=== PATIENT | female | born 1975 | race African-American/Black ===

== ENCOUNTER 2017-01-17 01:14 | Emergency (ER) | payer OTHER ==
[2017-01-17 02:29] VITALS: BP 103/73
[2017-01-17 02:53] LABS: Basophils % (Auto) 0.1 % (0.0-1.8); Eosinophils % (Auto) 0.1 % (0.0-4.3); Hemoglobin 10.8 gm/dl (10.1-14.3); Mean Corpuscular HGB Conc 34 % (30-34); Mean Corpuscular Hemoglobin 30 pg (28-32); Mean Corpuscular Volume 88 fl (79-97); Platelet Count 234 K/mm3 (140-440); Red Blood Count 3.62 M/mm3 (3.65-5.03); Red Cell Distribution Width 13.4 % (13.2-15.2)
[2017-01-17 03:22] LABS: Bacteria,Urine 1+ /HPF (Negative); Bilirubin,Urine NEG (Negative); Blood,Urine LG (Negative); Ketones,Urine NEG (Negative); Leukocyte Esterase,Urine SM (Negative); Mucus,Urine 2+ /HPF; Nitrite,Urine NEG (Negative); Urobilinogen,Urine < 2.0 mg/dL (<2.0)
[2017-01-17 03:23] LABS: RBC,Urine > 182.0 /HPF (0.0-6.0)
--- NOTE | 2017-01-18 11:13 | ED Elopement Review ---
ED Pt Elopement review - Results review Lab results: Laboratory Tests 01/17/17 01/17/17 01/17/17 02:36 02:36 02:36 WBC 14.0 H RBC 3.62 L Hgb 10.8 Hct 32.0 MCV 88 MCH 30 MCHC 34 RDW 13.4 Plt Count 234 Lymph % (Auto) 7.9 L [place] % (Auto) 4.2 Eos % (Auto) 0.1 Baso % (Auto) 0.1 Lymph # 1.1 L [place] # 0.6 Eos # 0.0 Baso # 0.0 Seg Neutrophils % 87.7 H Seg Neutrophils # 12.3 H HCG, Quant 24602 H Urine Color Urine Turbidity Urine pH Ur Specific [place] Urine Protein Urine Glucose (UA) Urine Ketones Urine Blood Urine Nitrite Urine Bilirubin Urine Urobilinogen Ur Leukocyte Esterase Urine WBC (Auto) Urine RBC (Auto) U Epithel Cells (Auto) Urine Bacteria (Auto) Urine Mucus Blood Type O POSITIVE Antibody Screen TNR CHARLEY Antibody Screen Negative 01/17/17 Unknown WBC RBC Hgb Hct MCV MCH MCHC RDW Plt Count Lymph % (Auto) [place] % (Auto) Eos % (Auto) Baso % (Auto) Lymph # [place] # Eos # Baso # Seg Neutrophils % Seg Neutrophils # HCG, Quant Urine Color Yellow Urine Turbidity Slightly-cloudy Urine pH 6.0 Ur Specific [place] 1.025 Urine Protein 30 mg/dl Urine Glucose (UA) Neg Urine Ketones Neg Urine Blood Lg Urine Nitrite Neg Urine Bilirubin Neg Urine Urobilinogen < 2.0 Ur Leukocyte Esterase Sm Urine WBC (Auto) 37.0 H Urine RBC (Auto) > 182.0 U Epithel Cells (Auto) 3.0 Urine Bacteria (Auto) 1+ Urine Mucus 2+ Blood Type Antibody Screen CHARLEY Antibody Screen - Call Back decision Pt Call Back Decision: No action required
== END 2017-01-17 07:06 | disposition left against medical advice (07) ==
LOC: ED 01:14
DX: N93.9 Abnormal uterine and vaginal bleeding, unspecified (principal); Z53.21 Procedure and treatment not carried out due to patient leaving prior to being seen by health care provider
CPT/HCPCS: 36415; 81001; 84702; 85025; 86850; 86900; 86901